=== PATIENT | female | born 1960 | race Caucasian/White ===

== ENCOUNTER → 2024-10-17 14:28 | Outpatient (REF) | payer MEDICARE, SELFPAY | LOC: HWWDC 14:28 | PROVIDERS: ATTENDING PHYSICIAN Internal Medicine | DX: Z12.31 Encounter for screening mammogram for malignant neoplasm of breast (principal) | CPT/HCPCS: 77063; 77067 ==

== ENCOUNTER 2025-03-02 09:58 | Emergency (ER) | payer MEDICARE, SELFPAY ==
[2025-03-02 10:27] VITALS: BP 179/88
[2025-03-02 12:17] VITALS: BP 133/80
[2025-03-02 12:19] VITALS: BMI 32.5
[2025-03-02 12:53] LABS: Urine Character Clear (Clear)
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
[2025-03-02] MEDS: TYLENOL 650 MG PO (13:11)
[2025-03-02 13:28] LABS: Urine Red Blood Cell 0-2 /HPF (0-2); Urine White Cell 0-2 /HPF (0-5)
[2025-03-02] MEDS: MOTRIN 600 MG PO (14:39)
[2025-03-02] MEDS: PROTONIX 20 MG PO (14:39)
[2025-03-02 14:56] VITALS: BP 128/76
== END 2025-03-02 14:57 | disposition home or self-care (01) ==
LOC: EMR 09:58
PROVIDERS: Physician Assistant; EMERGENCY PHYSICIAN Student in an Organized Health Care Education/Training Program; FAMILY PHYSICIAN Internal Medicine
DX: B34.9 Viral infection, unspecified (principal); S09.90XA Unspecified injury of head, initial encounter; W22.8XXA Striking against or struck by other objects, initial encounter; G35 Multiple sclerosis; K21.9 Gastro-esophageal reflux disease without esophagitis; K58.9 Irritable bowel syndrome, unspecified
CPT/HCPCS: 99284; 70450; 71046; 81003; 81015; 87502

== ENCOUNTER 2025-05-07 05:57 | Emergency (ER) | payer MEDICARE, SELFPAY ==
[2025-05-07 06:00] VITALS: BP 153/98
[2025-05-07 06:22] VITALS: BP 154/81
[2025-05-07 06:27] VITALS: BMI 28.3
--- NOTE | 2025-05-07 06:35 | ED.GENMED ---
History of Present Illness
General
Chief Complaint: Abdominal Pain
Source: patient
Exam Limitations: none
Time Seen by Provider: 05/07/25 06:16
History of Present Illness
History of Present Illness:
64-year-old female presents complaining of left lower abdominal discomfort onset last evening. This was preceded by URI symptoms and was diagnosed with bronchitis 15 days ago. She finished a course of Z-Eugene and steroids. She does note persistent
postnasal drip and cough however. No vomiting. She had a fever at the onset of her illness but none recently. No urinary symptoms. She also notes multiple areas of discomfort in her neck and her back. Overall she just feels unwell. She has a
history otherwise of GERD
Past History
Past History
ED Past Medical History: Other (Trigeminal neuralgia, MS, GERD, IBS, urosepsis, parathyroidectomy)
ED Past Surgical History: None
Social History
Tobacco: Non-smoker
Alcohol: None
Personal:
Living: with family
Phy Exam
Physical Exam
Physical Exam:
General: Well-appearing female no acute respiratory distress
HEENT: Normal cephalic atraumatic
Heart: Regular rate and rhythm
Lungs: Clear no wheeze
Abdomen is soft tender to the left mid and lower abdomen no guarding
Extremities: No cyanosis or edema
Skin is warm no rash
Course
Orders/Labs/Results
Orders:
Orders
05/07/25 06:33
CT Abd/pelvis W Iv Cont Urgent
Comment:
Reason For Exam: llq pain
05/07/25 06:34
CR Chest - 2 Views Urgent
Comment:
Reason For Exam: cough
05/07/25 06:38
Basic Metabolic Panel Urgent
COVID-19 Antigen Urgent
Source: Nasal Swab
Complete Blood Count/With Diff Urgent
Lipase Urgent
Influenza A+B Rapid Molecular Urgent
DICK Source: Nasal Swab
Specimen Description:
05/07/25 07:14
Urinalysis Reflex To Culture Urgent
Date Specimen was Collected: 05/07/25
Time Specimen was Collected: 07:10
Urine Microscopic Reflex Cult Urgent
05/07/25 07:18
CR Foot - Right Min 3 Views Urgent
Comment:
Reason For Exam: pain
Abnormal Lab Results
05/07/25
07:14
Ur Occult Blood Reflex 1+ A
(Negative)
Urine Bacteria (Reflex) Few A
(Negative)
Urine Albumin (Reflex) 1+ A
(Neg - Trace)
05/07/25 06:38
05/07/25 06:38
Vital Signs
Initial and Last Documented VS:
Initial Vital Signs
Temp Pulse Resp BP Pulse Ox
98.2 F 82 16 153/98 98
05/07/25 06:00 05/07/25 06:00 05/07/25 06:00 05/07/25 06:00 05/07/25 06:00
Last Documented Vital Signs
Temp Pulse Resp BP Pulse Ox
98.2 F 63 16 158/70 96
05/07/25 06:00 05/07/25 08:30 05/07/25 08:30 05/07/25 08:05 05/07/25 08:30
MDM/Problems Addressed
Differential Diagnosis Includes:
Patient with multiple complaints but primarily it was the left lower abdominal pain that brought her in. Consider constipation versus diverticulitis versus UTI. She also notes ongoing URI and cough symptoms. Will test for COVID and flu get x-ray
of her chest. CT of the abdomen pending urinalysis and blood work pending
*Pulse Oximetry
SaO2: 97
Oxygen Mode of Delivery: Room air
Patient hypoxic: no
*Critical Care Note
Total Time (30-74mins, 75-104mins- exclusive of procedures): Not Applicable
Update Note
Update Note:
Workup here shows significant stool in the colon to suggest constipation. Chest x-ray no infectious process. X-ray right foot negative for acute fracture. Patient has been using Dulcolax for constipation but will give a bottle of magnesium
citrate. No indication for admission. Reassured patient. Stable for discharge
ED Attending Note
-
Portions of this chart may have been created with voice recognition software.� Occasional wrong word or��sound alike� substitutions may have occurred due to the inherent limitations of voice recognition software.
Discharge Plan
Departure
Patient Disposition: Home (Routine Discharge)
Date of Disposition: 05/07/25
Time of Disposition: 08:56
Patient with high blood pressure during this ER visit?: No
Discharge Problem:
Constipation
Instructions: Constipation, Adult (DC)
Prescriptions:
No Action
metronidazole 500 MG tablet
500 mg PO TID Qty: 30 0RF
sucralfate 1 GM/10 ML suspension
1 gm PO ACHS Qty: 200 0RF
prednisone 20 mg tablet
20 mg PO BID Qty: 10 0RF
oxycodone 5 mg tablet
5 mg PO Q4H PRN (Reason: Pain) Qty: 10 0RF
gabapentin 300 mg capsule
300 mg PO BID Qty: 20 0RF
Referrals:
Traci Rosado MD [Active, Gastroenterology]
Addison Lira MD [Family Provider, Internal Medicine]
Activity Restrictions/Additional Instructions:
Use magnesium citrate as directed. Continue your stool softeners otherwise. Return if worse follow-up with GI and/or your family doctor
Interventions
Interventions:
*Risk Screen - Suicide Last Done: 05/07/25 06:00
*General Assessment Last Done: 05/07/25 06:00
*Neglect/Abuse Screening Last Done: 05/07/25 06:00
*ED- Fall Risk Assessment Last Done: 05/07/25 06:00
*ED COVID-19 Vaccine History Last Done: 05/07/25 06:00
*ED Influenza Vaccine History Last Done: 05/07/25 06:00
LH-Fojnkj-Emfoyvkccr Assessment Last Done: 05/07/25 07:18
Discharge Date and Time
Print Language: MALIAN
[2025-05-07 06:53] LABS: Hematocrit 39.0 % (37.0-47.0); Hemoglobin 13.6 g/dL (12.0-16.0); Mean Corp Hgb Conc. 34.9 g/dL (33.0-37.0); Mean Corpuscular Volume 84.1 fL (81.0-99.0); Nucleated Red Blood Cells % 0 %; Platelet Count 199 10^3/uL (130-400); Red Cell Dist. Width 11.9 % (11.5-14.5)
[2025-05-07 07:09] VITALS: BP 154/70
[2025-05-07 07:23] LABS: Blood Urea Nitrogen 15 mg/dl (7-17); Calcium 9.2 mg/dl (8.4-10.2); Carbon Dioxide 26 mmol/L (22-30); Chloride 105 mmol/L (98-107); Estimated Creatinine Clearance 49 ml/min; Glucose 98 mg/dl (70-99); Lipase 186 U/L (23-300); Sodium 137 mmol/L (135-145); eGFR > 60.00
[2025-05-07 07:25] LABS: COVID-19 Antigen Negative (Negative)
[2025-05-07 07:38] LABS: Urine Character Clear (Clear)
[2025-05-07 07:47] LABS: Urine Red Blood Cell 0-2 /HPF (0-2)
[2025-05-07 08:05] VITALS: BP 158/70
[2025-05-07] MEDS: CITROMA 300 ML PO (09:07)
== END 2025-05-07 09:25 | disposition home or self-care (01) ==
LOC: EMR 05:57
PROVIDERS: Physician Assistant; EMERGENCY PHYSICIAN Emergency Medicine; FAMILY PHYSICIAN Internal Medicine
DX: K59.00 Constipation, unspecified (principal); K21.9 Gastro-esophageal reflux disease without esophagitis; G50.0 Trigeminal neuralgia; G35.D Multiple sclerosis, unspecified
CPT/HCPCS: 99284; 71046; 73630; 74177; 80048; 81003; 81015; 83690; 85025; 87502; 87811; Q9967